=== PATIENT | female | born 1970 | race Two or more races ===

== ENCOUNTER 2017-07-21 11:56 | Emergency (ER) | payer MEDICAID ==
[~2017-07-21] VITALS: Ht 162.6 cm; Wt 77.1 kg
[~2017-07-21 11:56] MED LIST: IBUPROFEN400 MG ORAL
--- NOTE | 2017-07-21 12:12 | Emergency Room Report ---
History of Present Illness General Chief Complaint: Abdominal Pain Source: Patient Present Illness HPI 46 YO Female presents to the ED c/o of Left-sided adnexal pain, 8/10 in severity x 4 days, described as sharp and constant with intermittent exacerbations. pt. just had her period last week. denies vaginal d/c, denies fevers or chills, reports nausea no vomiting, no dysuria, hematuria, frequency, constipation, or diarrhea. Pt. denies radiation of the pain. denies Pmhx. Denies CP, Palpitations, LOC, AMS, dizziness, Changes in Vision, Sensation, paresthesias, or a sudden severe headache. Allergies: Coded Allergies: No Known Allergies (Unverified , 06/12/15) Patient History Past Medical History: see triage record Past Surgical History: none Pertinent Family History: none Last Menstrual Period: 07/17/17 Now: No : 2 Para: 2 Reviewed Nursing Documentation: PMH: Agreed, PSxH: Agreed Nursing Documentation-PMH Past Medical History: No Stated History Review of Systems All Other Systems: negative except mentioned in HPI Physical Exam Vital Signs Date Time Temp Pulse Resp B/P (MAP) Pulse Ox O2 Delivery O2 Flow Rate FiO2 07/21/17 12:04 98.1 62 18 129/85 100 Room Air Sp02 EP Interpretation: reviewed, normal General Appearance: no apparent distress, alert, GCS 15, non-toxic Head: normocephalic, atraumatic Eyes: bilateral eye normal inspection, bilateral eye PERRL ENT: hearing grossly normal, normal voice Neck: full range of motion Respiratory: lungs clear, normal breath sounds, speaking full sentences Cardiovascular #1: regular rate, rhythm Gastrointestinal: normal bowel sounds, non tender, soft, no guarding, no rebound Rectal: deferred Genitourinary: normal inspection, no CVA tenderness, other - Left adnexal TTP, no bulging, no erythema, no palpable LAD, no increased temperature to palpation. Musculoskeletal: back normal, gait/station normal, normal range of motion, non- tender Neurologic: alert, oriented x3, responsive, motor strength/tone normal, sensory intact, normal gait, speech normal Psychiatric: judgement/insight normal, memory normal, mood/affect normal Skin: normal color, no rash, warm/dry, well hydrated Lymphatic: no adenopathy Medical Decision Making PA Attestation Dr. charles is my supervising Physician whom patient management has been discussed with. Diagnostic Impression: Primary Impression: Ovarian cyst Qualified Codes: N83.202 - Unspecified ovarian cyst, left side ER Course Pt. presents to the ED c/o of Left-sided adnexal pain, 8/10 in severity x 4 days , described as sharp and constant with intermittent exacerbations. pt. just had her period last week. denies vaginal d/c, denies fevers or chills, reports nausea no vomiting, no dysuria, hematuria, frequency, constipation, or diarrhea. Pt. denies radiation of the pain. denies Pmhx. Ddx considered but are not limited to Diverticulitis, acute appy, ovarian torsion, ectopic , PID tubo-ovarian abscess, ovarian cyst. Vital signs: are WNL, pt. is afebrile H&PE are most consistent with possible ovarian cyst, however due to presentation will r/o torsion, ectopic, and stone. ORDERS: -CBC, CMP, : unremarkable -UA: WNL/ unremarkable -URINE HCG:Negative -Pelvic US Complete: Left ovarian cyst, normal blood flow to the ovaries. per official radiology report. ED INTERVENTIONS: - 60mg IM Toradol - 5mg [place] -I do not suspect an emergent condition at this time. with current presentation pt. is stable for close outpatient follow up. D/w pt. to return to ED with worsening or new symptoms. DISCHARGE: At this time pt. is stable for d/c to home. Will provide printed patient care instructions, and any necessary prescriptions. Care plan and follow up instructions have been discussed with the patient prior to discharge. Last Vital Signs Date Time Temp Pulse Resp B/P (MAP) Pulse Ox O2 Delivery O2 Flow Rate FiO2 07/21/17 12:04 98.1 62 18 129/85 100 Room Air Disposition: HOME, SELF-CARE Condition: Stable Scripts Hydrocodone Bit/Acetaminophen 5-325* (NORCO 5-325*) 1 Each Tablet 1 TAB ORAL Q6H Y for For Pain, #4 TAB 0 Refills Prov: Yocasta Burch P.A. 07/21/17 Ibuprofen* (MOTRIN*) 600 Mg Tablet 600 MG ORAL THREE TIMES A DAY, #30 TAB 0 Refills Prov: Yocasta Burch P.A. 07/21/17 Patient Instructions: Ovarian Cyst Additional Instructions: Take medications as directed. Follow up with a Primary Care Provider in 3-5 days OBGYN , even if your symptoms have resolved. --Please review list of primary care clinics, if you do not already have a primary care provider Return sooner to ED if new symptoms occur, or current symptoms become worse. - Please note that this Emergency Department Report was dictated using [employer]firmware architect technology software, occasionally this can lead to erroneous entry secondary to interpretation by the dictation equipment. Yocasta Burch Jul 21, 2017 12:12
[2017-07-21 12:14] VITALS: BP 124/67
[2017-07-21 12:35] LABS: APPEARANCE,URINE CLEAR; KETONES,URINE NEGATIVE (NEGATIVE); LEUKOCYTE ESTERASE ,URINE NEGATIVE (NEGATIVE); NITRITE,URINE NEGATIVE (NEGATIVE); PH,URINE 6.5 (4.5-8.0); PROTEIN,URINE NEGATIVE (NEGATIVE); UROBILINOGEN,URINE NORMAL MG/DL (0.0-1.0)
[2017-07-21] MEDS ORDERED: Ketorolac 30mg Inj IV ONE (12:45)
[2017-07-21] MEDS ORDERED: Norco 5mg/325mg tab ORAL ONE (12:45)
[2017-07-21 12:52] LABS: BASOPHILS % (AUTO) 1.3 % (0.0-2.0); EOSINOPHILS % (AUTO) 2.2 % (0.0-3.0); LYMPHOCYTES % (AUTO) 39.5 % (20.0-45.0); MEAN CORPUSCULAR HEMOGLOBIN 30.1 PG (27.0-31.0); MEAN CORPUSCULAR HGB CONC 33.1 G/DL (32.0-36.0); MEAN CORPUSCULAR VOLUME 91 FL (80-99); MEAN PLATELET VOLUME 7.8 FL (6.5-10.1); MONOCYTES % (AUTO) 8.6 % (1.0-10.0); NEUTROPHILS % (AUTO) 48.4 % (45.0-75.0); PLATELET COUNT 215 K/UL (150-450); RED BLOOD COUNT 4.35 M/UL (4.20-5.40); RED CELL DISTRIBUTION WIDTH 12.2 % (11.6-14.8); WHITE BLOOD COUNT 7.8 K/UL (4.8-10.8)
[2017-07-21 13:19] LABS: ALANINE AMINOTRANSFERASE 51 U/L (3-33); ASPARTATE AMINO TRANSFERASE 38 U/L (5-40); CALCIUM 9.3 mg/dL (8.6-10.2); CARBON DIOXIDE 23 mEQ/L (20-30); GLOMERULAR FILTRATION RATE > 60 mL/min (>60); TOTAL PROTEIN 6.9 g/dL (6.6-8.7)
[2017-07-21 13:20] LABS: ALBUMIN/GLOBULIN RATIO 1.3 (1.0-2.7); ANION GAP 14 (5-15); CHLORIDE 103 mEQ/L (98-107); HEMOLYSIS 4; POTASSIUM 4.4 mEQ/L (3.4-4.9); SODIUM 140 mEQ/L (135-145)
[2017-07-21] MEDS ORDERED: IBUPROFEN600 MG ORAL (13:51)
[2017-07-21] MEDS ORDERED: NORCO 5-325 TA1 EACH ORAL (13:51)
[2017-07-21 14:03] VITALS: BP 117/75
--- NOTE | 2017-07-21 15:16 | Diagnostic Imaging Report ---
Indication:Lower abdominal and pelvic pain Technique: Grayscale and duplex Doppler imaging of the pelvis performed utilizing a transabdominal scan and endovaginal scan. Comparison: None Findings: There are bright echoes in the endometrium which appears normal in thickness. These The ovaries are demonstrated and appear normal. There is a simple cyst in the left ovary measuring 2.6 x 1.6 cm. There is Doppler blood flow within both ovaries. No significant free fluid is demonstrated. The endometrial stripe is about 4 mm in thickness. Uterus measures 10 x 5.8 x 63.8 cm. Right ovary 2 point 2 x 2 0.6 x 1.5 CM. Left ovary 3.1 x 2.7 x 3.0 CM. Impression: No acute findings appreciated. Simple left ovarian cyst
== END 2017-07-21 14:13 | disposition home or self-care (01) ==
LOC: EMR 12:21
DX: N83.202 Unspecified ovarian cyst, left side (principal); R10.9 Unspecified abdominal pain
CPT/HCPCS: 36415; 76856; 80053; 81003; 81025; 85025; 96374; 99284; J1885

== ENCOUNTER 2019-05-06 23:21 | Emergency (ER) | payer MEDICAID ==
[~2019-05-06] VITALS: Ht 165.1 cm; Wt 78.5 kg
[~2019-05-06 23:21] MED LIST changes: +IBUPROFEN600 MG ORAL; +NORCO 5-325 TA1 EACH ORAL
[2019-05-06] MEDS ORDERED: NKM (23:29)
[2019-05-06 23:30] VITALS: BP 161/83
--- NOTE | 2019-05-06 23:30 | NUR ---
ED Nurse Note: Patient walked into ED c/o 06/30 lower abdominal pain that radiates to the left side accompanied by painful urination, states that this has been an on going issue for 8 days
--- NOTE | 2019-05-06 23:42 | Emergency Room Report ---
History of Present Illness General Chief Complaint: Female Urogenital Problems Source: Patient Present Illness HPI This is a 48-year-old female with no past medical history. She presents with chief complaint of acute onset of left pelvic left lower quadrant pain. Onset about an hour ago. Pain is sharp. Radiating to the left flank area. [place] nauseous but no vomiting. No diarrhea. No hematuria. Pain is 9 out of 10. Nothing made it better. Nothing made it worse. Allergies: Coded Allergies: No Known Allergies (Unverified , 06/12/15) Patient History Past Medical History: see triage record, old chart reviewed Past Surgical History: other Pertinent Family History: none Social History: Denies: smoking Last Menstrual Period: 03/22/19 Now: No Immunizations: other Reviewed Nursing Documentation: PMH: Agreed; PSxH: Agreed Nursing Documentation-PMH Past Medical History: No Stated History Review of Systems Eye: Denies: eye pain, blurred vision ENT: Denies: ear pain, nose congestion, throat swelling Respiratory: Denies: cough, shortness of breath Cardiovascular: Denies: chest pain, palpitations Gastrointestinal: Reports: abdominal pain; Denies: diarrhea, nausea, vomiting Musculoskeletal: Denies: back pain, joint pain Skin: Denies: rash Neurological: Denies: headache, numbness Endocrine: Denies: increased thirst, increased urine Hematologic/Lymphatic: Denies: easy bruising All Other Systems: negative except mentioned in HPI Physical Exam Vital Signs Date Time Temp Pulse Resp B/P (MAP) Pulse Ox O2 Delivery O2 Flow Rate FiO2 05/06/19 23:25 99.0 72 18 161/83 (109) 100 Room Air Vitals with high blood pressure Sp02 EP Interpretation: reviewed, normal General Appearance: well appearing, no apparent distress, alert Head: normocephalic, atraumatic Eyes: bilateral eye PERRL, bilateral eye EOMI ENT: hearing grossly normal, normal pharynx Neck: full range of motion, supple, no meningismus Respiratory: chest non-tender, lungs clear, normal breath sounds Cardiovascular #1: regular rate, rhythm, no murmur Gastrointestinal: normal bowel sounds, non tender, no mass, no organomegaly, no bruit, non-distended Musculoskeletal: back normal, gait/station normal, normal range of motion Psychiatric: mood/affect normal Skin: warm/dry Medical Decision Making Diagnostic Impression: Primary Impression: Abdominal pain Qualified Codes: R10.32 - Left lower quadrant pain ER Course This patient presents with left lower quadrant abdominal pain. Labs unremarkable. CT unremarkable except for right ovarian cyst. No evidence of obstruction or acute abdomen. Pain resolved now. Will discharge home. CT/MRI/US Diagnostic Results CT/MRI/US Diagnostic Results : Imaging Test Ordered: CT abdomen pelvis Impression Read by radiologist. Right ovarian cyst. Negative otherwise. Last Vital Signs Date Time Temp Pulse Resp B/P (MAP) Pulse Ox O2 Delivery O2 Flow Rate FiO2 05/06/19 23:30 99.0 72 18 161/83 100 Room Air Status: improved Disposition: HOME, SELF-CARE Condition: Stable Scripts Ibuprofen* (MOTRIN*) 600 Mg Tablet 600 MG ORAL THREE TIMES A DAY, #30 TAB 0 Refills Prov: Adelfo Gong MD 05/07/19 Referrals: NOT CHOSEN [facility]/,REFERRING (PCP) Additional Instructions: Follow-up with your doctor in 3 to 5 days. Return if worse. Adelfo Gong MD May 06, 2019 23:42
[2019-05-06] MEDS ORDERED: Ketorolac 30mg Inj IV ONE (23:45)
[2019-05-06 23:56] LABS: APPEARANCE,URINE CLEAR; BILIRUBIN, URINE NEGATIVE (NEGATIVE); COLOR,URINE PALE YELLOW; GLUCOSE, URINE (UA) NEGATIVE (NEGATIVE); KETONES,URINE NEGATIVE (NEGATIVE); LEUKOCYTE ESTERASE ,URINE 1+ (NEGATIVE); NITRITE,URINE NEGATIVE (NEGATIVE); PH,URINE 6 (4.5-8.0); PROTEIN,URINE NEGATIVE (NEGATIVE); UROBILINOGEN,URINE NORMAL MG/DL (0.0-1.0)
--- NOTE | 2019-05-07 00:05 | NUR ---
ED Nurse Note: PT WENT TO CT
[2019-05-07 00:36] LABS: BASOPHILS % (AUTO) 0.8 % (0.0-2.0); EOSINOPHILS % (AUTO) 1.7 % (0.0-3.0); HEMATOCRIT 34.7 % (37.0-47.0); LYMPHOCYTES % (AUTO) 30.1 % (20.0-45.0); MEAN CORPUSCULAR VOLUME 79 FL (80-99); MONOCYTES % (AUTO) 8.2 % (1.0-10.0); NEUTROPHILS % (AUTO) 59.2 % (45.0-75.0); PLATELET COUNT 201 K/UL (150-450); RED BLOOD COUNT 4.39 M/UL (4.20-5.40); RED CELL DISTRIBUTION WIDTH 12.3 % (11.6-14.8)
[2019-05-07 00:41] LABS: ANION GAP 10 mmol/L (5-15); BLOOD UREA NITROGEN 25 mg/dL (7-18); CARBON DIOXIDE 26 MMOL/L (21-32); CHLORIDE 104 MMOL/L (98-107); POTASSIUM 3.9 MMOL/L (3.5-5.1); SODIUM 140 MMOL/L (136-145)
[2019-05-07] MEDS ORDERED: IBUPROFEN600 MG ORAL (01:02)
[2019-05-07 01:08] VITALS: BP 155/79
--- NOTE | 2019-05-07 01:08 | NUR ---
ER DISCHARGE NOTE: Patient is cleared to be discharged per ERMD, pt is aox4, on room air, with stable vital signs. pt was given dc and prescription instructions, pt was able to verbalize understanding, pt id band and iv site removed without complications. pt is able to ambulate with steady gait. pt took all belongings.
--- NOTE | 2019-05-07 10:16 | Diagnostic Imaging Report ---
Indication: Abdominal pain, left-sided abdominal pain Technique: Spiral acquisitions obtained through the abdomen and pelvis. No oral contrast utilized, per emergency room physician request No IV contrast utilized, per referring physician request.. Multiplanar reconstructions were generated. Total dose length product 812.97 mGycm. CTDIvol(s) 16.14 mGy. Dose reduction achieved using automated exposure control Comparison: None Findings: Normal appendix. No evidence of diverticulosis or diverticulitis. No small bowel distention. No free or loculated intraperitoneal gas or fluid is evident. Distal esophagus, stomach, duodenum are unremarkable. Lack of IV contrast limits assessment of solid organs. The liver, gallbladder, bile ducts, pancreas, spleen, adrenals, kidneys are all unremarkable. No retroperitoneal or mesenteric mass or adenopathy. No pelvic mass or adenopathy. The included lung bases demonstrate some groundglass opacity. The bones are unremarkable. Impression: Essentially unremarkable exam Nonspecific basilar pulmonary groundglass opacities This agrees with the preliminary interpretation provided overnight by [facility] teleradiology service, with minor variations. The CT scanner at [facility] is accredited by the [employer] and the scans are performed using protocols designed to limit radiation exposure to as low as reasonably achievable to attain images of sufficient resolution adequate for diagnostic evaluation.
== END 2019-05-07 01:08 | disposition home or self-care (01) ==
LOC: EMR 23:39
DX: R10.32 Left lower quadrant pain (principal); N83.201 Unspecified ovarian cyst, right side
CPT/HCPCS: 36415; 74176; 80048; 81003; 81025; 85025; 96361; 96374; 96375; 99284; J1885; J2405

== ENCOUNTER 2019-09-25 18:16 | Emergency (ER) | payer MEDICAID ==
[~2019-09-25] VITALS: Ht 154.9 cm; Wt 77.1 kg
[~2019-09-25 18:16] MED LIST changes: +NKM
--- NOTE | 2019-09-25 18:36 | NUR ---
ED Nurse Note: pt presents to ED with an allergic reaction x 4 days. per pt's , she developed a rash on her face 4 days ago. The rash is red and itchy, it is on both sides of her face, ears, R forearm and back. pt does not know the trigger. pt denies any swelling of mouth, tongue or difficulty breathing. pt denies taking anything for the allergic reaction [facility]
[2019-09-25 18:38] VITALS: BP 133/77
--- NOTE | 2019-09-25 18:58 | Emergency Room Report ---
History of Present Illness General Chief Complaint: Allergic Reaction Source: Patient Present Illness HPI 48-year-old female presents to the emergency department complaining of progressive rash that started on the bilateral ears and then migrated to the sides of the neck, back of the neck, bilateral AC areas as well as the wrists and bilateral cheeks progressive x3 days. Patient denies pain. Pt. denies fevers, chills or swollen tender lymph nodes. Denies lesions/rashes elsewhere on the body. Denies new medications or body washes or creams. Denies swelling of the lips, tongue , throat or airway. Denies wheezing, or shortness of breath. Denies recent travel, recent illness or ill contacts. denies blisters , oral lesions, or sloughing of the skin Allergies: Coded Allergies: No Known Allergies (Unverified , 06/12/15) Patient History Past Medical History: see triage record Past Surgical History: none Pertinent Family History: none Last Menstrual Period: 09/13/19 Now: No Reviewed Nursing Documentation: PMH: Agreed; PSxH: Agreed Nursing Documentation-PMH Past Medical History: No Stated History Review of Systems All Other Systems: negative except mentioned in HPI Physical Exam Vital Signs Date Time Temp Pulse Resp B/P (MAP) Pulse Ox O2 Delivery O2 Flow Rate FiO2 09/25/19 18:27 98.4 82 18 133/77 (95) 99 Room Air Sp02 EP Interpretation: reviewed, normal General Appearance: no apparent distress, alert, GCS 15, non-toxic Head: normocephalic, atraumatic Eyes: bilateral eye normal inspection, bilateral eye PERRL ENT: hearing grossly normal, normal pharynx, no angioedema, normal voice, uvula midline Neck: full range of motion Respiratory: lungs clear, normal breath sounds, no wheezing, speaking full sentences Cardiovascular #1: regular rate, rhythm Musculoskeletal: gait/station normal, normal range of motion, non-tender Neurologic: alert, oriented x3, responsive, motor strength/tone normal, sensory intact, speech normal, grossly normal Psychiatric: judgement/insight normal Skin: rash - confluent papular rash on the posterior ear, lateral neck and back of the neck, also apparant on the bilateral a/c areas, dorsal wrists and on the bilateral cheeks. no blisters or vessicles. No sloughing of the skin. Lymphatic: no adenopathy Medical Decision Making PA Attestation Dr. Mukherjee is my supervising Physician whom patient management has been discussed with. Diagnostic Impression: Primary Impression: Rash and nonspecific skin eruption Additional Impression: Allergic dermatitis ER Course 48-year-old female presents to the emergency department complaining of progressive rash that started on the bilateral ears and then migrated to the sides of the neck, back of the neck, bilateral AC areas as well as the wrists and bilateral cheeks progressive x3 days. Patient denies pain. Pt. denies fevers, chills or swollen tender lymph nodes. Denies lesions/rashes elsewhere on the body. Denies new medications or body washes or creams. Denies swelling of the lips, tongue , throat or airway. Denies wheezing, or shortness of breath. Denies recent travel, recent illness or ill contacts. denies blisters , oral lesions, or sloughing of the skin Ddx considered but are not limited to allergic reaction, cellulitis, scabies, shingles, varicella, dermatitis, urticaria, eczema, tinea, viral exanthem, SJS Vital signs: are WNL, pt. is afebrile H&PE are most consistent with non-viral exanthem. most likely allergic reaction. --Physical exam does not suggest acute impending airway compromise or anaphylaxis. Patient has a patent airway. ORDERS: none required at this time, the diagnosis is clinical ED INTERVENTIONS: -Benadryl -Prednisone PO -I do not identify an emergent condition at this time. With current presentation , pt. is stable for close outpatient follow up and conservative treatment. D/ w pt. to return promptly to ED with worsening or new symptoms.- Pt. verbalizes' understanding and agreement with proposed treatment plan. DISCHARGE: At this time pt. is stable for d/c to home. Will provide printed patient care instructions, and any necessary prescriptions. Care plan and follow up instructions have been discussed with the patient prior to discharge. Last Vital Signs Date Time Temp Pulse Resp B/P (MAP) Pulse Ox O2 Delivery O2 Flow Rate FiO2 09/25/19 18:38 82 18 Room Air 09/25/19 18:38 98.4 133/77 99 Disposition: HOME, SELF-CARE Condition: Stable Scripts Cetirizine Hcl* (ZYRTEC*) 10 Mg Tablet 10 MG ORAL DAILY, #30 TAB 0 Refills Prov: Yocasta Burch 09/25/19 Hydrocortisone 2% Cream (ANTI-ITCH 2% CREAM) Y Cr 1 APPLIC TP TID, #28 GM Prov: Yocasta Burch 09/25/19 Prednisone* (PREDNISONE*) 20 Mg Tablet 40 MG ORAL DAILY for 3 Days, #6 TAB Prov: Yocasta Burch 09/25/19 Diphenhydramine Hcl (BENADRYL ALLERGY) 25 Mg Tablet 25 MG PO Q6HR, #30 TAB Prov: Yocasta Burch 09/25/19 Referrals: [facility] Patient Instructions: Allergies, Rash, [id number] Additional Instructions: Take medications as directed. Do not drink alcohol, drive, or operate heavy machinery while taking Benadryl as this may cause drowsiness Follow up with a Primary Care Provider in 3-5 days, even if your symptoms have resolved. --Please review list of primary care clinics, if you do not already have a primary care provider Return sooner to ED if new symptoms occur, or current symptoms become worse. . - Please note that this Emergency Department Report was dictated using [employer] gatherer technology software, occasionally this can lead to erroneous entry secondary to interpretation by the dictation equipment. Yocasta Burch Sep 25, 2019 18:58
[2019-09-25] MEDS ORDERED: ZYRTEC10 MG ORAL (19:00)
[2019-09-25] MEDS ORDERED: ANTI-ITCH28 G1 TP (19:00)
[2019-09-25] MEDS ORDERED: PREDNISONE20 MG ORAL (19:00)
[2019-09-25] MEDS ORDERED: BENADRYL ALLERG25 M1 PO (19:00)
--- NOTE | 2019-09-25 19:08 | NUR ---
ED Nurse Note: Received report from Estrella AMEZCUA. No new further orders at this time.
[2019-09-25 19:28] VITALS: BP 133/77
--- NOTE | 2019-09-25 19:28 | NUR ---
ED Nurse Note: Pt cleared by ERMD for discharge. DC instructions/prescription was given and explained to pt and verbalized understanding of teachings. All medical deviecs such as ID band removed. Pt is AAO x4, ambulatory and left with all personal belongings. Accompanied by family member.
== END 2019-09-25 19:28 | disposition home or self-care (01) ==
LOC: EMR 18:50
DX: R21 Rash and other nonspecific skin eruption (principal); L23.9 Allergic contact dermatitis, unspecified cause
CPT/HCPCS: J7512; Z7502; 99282

== ENCOUNTER 2019-10-22 14:45 | Emergency (ER) | payer MEDICAID ==
[~2019-10-22] VITALS: Ht 165.1 cm; Wt 75.7 kg
[~2019-10-22 14:45] MED LIST changes: +ANTI-ITCH28 G1 TP; +BENADRYL ALLERG25 M1 PO; +PREDNISONE20 MG ORAL; +ZYRTEC10 MG ORAL
[2019-10-22 14:54] VITALS: BP 130/77
--- NOTE | 2019-10-22 15:00 | NUR ---
ED Nurse Note: Patient arrived to ED by car from home complaining of lower back pain x 3 days, 06/30. Patient A/O x 4, no complaints of nausea or vomiting.
--- NOTE | 2019-10-22 15:03 | NUR ---
ED Nurse Note: PT FROM HOME AND WALKED IN DUE TO LOWER BACK PAIN THAT RADIATES TO HER LOWER ABD X 3 DAYS. DENIES INJURY OR DYSURIA. AAO X4, AMBULATORY.
[2019-10-22 15:24] LABS: APPEARANCE,URINE CLEAR; BILIRUBIN, URINE NEGATIVE (NEGATIVE); GLUCOSE, URINE (UA) 1+ (NEGATIVE); KETONES,URINE 1+ (NEGATIVE); LEUKOCYTE ESTERASE ,URINE NEGATIVE (NEGATIVE); NITRITE,URINE NEGATIVE (NEGATIVE); PH,URINE 5 (4.5-8.0); PROTEIN,URINE NEGATIVE (NEGATIVE); UROBILINOGEN,URINE NORMAL MG/DL (0.0-1.0)
[2019-10-22 15:29] LABS: COLOR,URINE YELLOW
[2019-10-22] MEDS ORDERED: Ketorolac 30mg Inj IV ONE (15:30)
[2019-10-22] MEDS ORDERED: Omnipaque-300 100ml vial INJ PRN (15:30)
[2019-10-22] MEDS ORDERED: Methocarbamol 750mg tab ORAL ONE (15:30)
[2019-10-22 16:05] LABS: EOSINOPHILS % (AUTO) 1.3 % (0.0-3.0); HEMATOCRIT 40.7 % (37.0-47.0); HEMOGLOBIN 13.5 G/DL (12.0-16.0); MEAN CORPUSCULAR VOLUME 81 FL (80-99); MONOCYTES % (AUTO) 9.3 % (1.0-10.0); NEUTROPHILS % (AUTO) 59.4 % (45.0-75.0); PLATELET COUNT 265 K/UL (150-450); RED BLOOD COUNT 5.01 M/UL (4.20-5.40); RED CELL DISTRIBUTION WIDTH 12.3 % (11.6-14.8)
[2019-10-22 16:10] LABS: ANION GAP 8 mmol/L (5-15); BLOOD UREA NITROGEN 22 mg/dL (7-18); CALCIUM 9.3 MG/DL (8.5-10.1); CARBON DIOXIDE 25 MMOL/L (21-32); CHLORIDE 108 MMOL/L (98-107); CREATININE 0.7 MG/DL (0.55-1.30); POTASSIUM 4.4 MMOL/L (3.5-5.1); SODIUM 141 MMOL/L (136-145)
--- NOTE | 2019-10-22 16:11 | Emergency Room Report ---
History of Present Illness General Chief Complaint: Back Pain-No Injury Source: Patient Present Illness HPI 48-year-old female with no significant past medical history here with her daughter complaining of sudden onset of lower back pain radiating to suprapubic area x2 days. Patient reports that she has history of multiple ovarian cysts and has been seen by a furnace filler however not recently. Patient reports increase vaginal bleeding during her menses. Denies urinary frequency and urgency. Denies nausea and vomiting however complains of fever and chills upon the onset of her symptoms. Denies chest pain, shortness of breath, palpitation , fall or injury. Denies lifting heavy objects. No bony tenderness is noted. Denies diffuse abdominal pain, headache and dizziness. Has not taken medication for symptom relief. Denies history of renal stone, renal infection. Patient explained to daughter that she feels like something is moving in her lower back as she is sitting and standing as if she has dislocated disc. Allergies: Coded Allergies: No Known Allergies (Unverified , 06/12/15) Patient History Past Medical History: see triage record Past Surgical History: unable to obtain Pertinent Family History: none Now: No Immunizations: UTD Reviewed Nursing Documentation: PMH: Agreed; PSxH: Agreed Nursing Documentation-PMH Past Medical History: No Stated History Review of Systems All Other Systems: negative except mentioned in HPI Physical Exam Vital Signs Date Time Temp Pulse Resp B/P (MAP) Pulse Ox O2 Delivery O2 Flow Rate FiO2 10/22/19 14:54 98.4 77 17 130/77 (94) 98 Room Air Sp02 EP Interpretation: reviewed, normal General Appearance: no apparent distress, alert, GCS 15, non-toxic Head: normocephalic, atraumatic Eyes: bilateral eye normal inspection, bilateral eye PERRL ENT: hearing grossly normal, normal pharynx, no angioedema, normal voice Neck: full range of motion, supple/symm/no masses Respiratory: chest non-tender, lungs clear, normal breath sounds, no rhonchi, no wheezing, speaking full sentences Cardiovascular #1: regular rate, rhythm, no edema, no murmur Cardiovascular #2: 2+ carotid (L), 2+ radial (R) Gastrointestinal: normal bowel sounds, non tender, soft, no mass, no organomegaly, no peritonitis, no bruit, non-distended, no guarding, no hernia, no pulsatile mass, no rebound Rectal: deferred Genitourinary: no CVA tenderness Musculoskeletal: back normal, normal range of motion, no calf tenderness, gait/ station normal, non-tender Neurologic: alert, motor strength/tone normal, oriented x3, sensory intact, responsive, speech normal Psychiatric: judgement/insight normal, memory normal, mood/affect normal, no suicidal/homicidal ideation Skin: no rash Lymphatic: no adenopathy Medical Decision Making PA Attestation All my diagnosis and treatment plans were reviewed ad discussed with my supervising physician Dr. Graevs Diagnostic Impression: Primary Impression: Lumbar strain Additional Impressions: Renal lesion Ovarian cyst ER Course 48-year-old female with no significant past medical history here with her daughter complaining of sudden onset of lower back pain radiating to suprapubic area x2 days. Patient reports that she has history of multiple ovarian cysts and has been seen by a furnace filler however not recently. Patient reports increase vaginal bleeding during her menses. Denies urinary frequency and urgency. Denies nausea and vomiting however complains of fever and chills upon the onset of her symptoms. Denies chest pain, shortness of breath, palpitation , fall or injury. Denies lifting heavy objects. No bony tenderness is noted. Denies diffuse abdominal pain, headache and dizziness. Has not taken medication for symptom relief. Denies history of renal stone, renal infection. Patient explained to daughter that she feels like something is moving in her lower back as she is sitting and standing as if she has dislocated disc. Ddx considered but are not limited to: Pyelonephritis, exacerbation of ovarian cyst, UTI, lumbar spine sprain, strain, fracture, contusion, neuropathy Vital signs: are WNL, pt. is afebrile H&PE are most consistent with: lumbar strain, renal cyst, ovarian cyst ORDERS: Lumbar spine x-ray, CT abdomen pelvis with contrast, CBC, CMP, lipase, UA, robaxin, ibuprofen, lidocaine patch ER intervention: NS bolus, Toradol, Robaxin DISCHARGE: At this time pt. is stable for d/c to home. Will provide printed patient care instructions, and any necessary prescriptions. Care plan and follow up instructions have been discussed with the patient prior to discharge. Patient to follow-up with her primary care provider for referral to furnace filler regarding ovarian cyst also have further look into the renal lesion that has been found, avoid strenuous physical activity, physical therapy may help Other X-Ray Diagnostic Results Other X-Ray Diagnostic Results : X-Ray ordered: L spine # of Views/Limited Vs Complete: 3 View Indication: Pain EP Interpretation: Yes PA Xray: Interpretation reviewed, by supervising MD, and agrees with findings. Interpretation: no dislocation, no soft tissue swelling, no fractures Impression: No acute disease Electronically Signed by: Bharathi Pennington PA-C CT/MRI/US Diagnostic Results CT/MRI/US Diagnostic Results : Imaging Test Ordered: CT abd pelvis with contrast Impression wnl, ovarian cyst and small renal lesion noted Last Vital Signs Date Time Temp Pulse Resp B/P (MAP) Pulse Ox O2 Delivery O2 Flow Rate FiO2 10/22/19 14:54 98.4 77 17 130/77 98 Room Air Disposition: HOME, SELF-CARE Condition: Stable Referrals: NOT CHOSEN [facility]/MD,REFERRING (PCP) Patient Instructions: Lumbosacral Strain, Ovarian Cyst, [place] Additional Instructions: Follow-up with primary care provider, physical therapy may benefit you, also you need to be seen by furnace filler regarding the ovarian cyst and also have a further look into the renal lesion possible MRI. Bharathi Smith Oct 22, 2019 16:11
[2019-10-22 16:15] LABS: ALANINE AMINOTRANSFERASE 27 U/L (12-78); ALBUMIN 3.4 G/DL (3.4-5.0); ALBUMIN/GLOBULIN RATIO 0.8 (1.0-2.7); ALKALINE PHOSPHATASE 150 U/L (46-116); ASPARTATE AMINO TRANSFERASE 15 U/L (15-37); BILIRUBIN,TOTAL 0.2 MG/DL (0.2-1.0)
--- NOTE | 2019-10-22 16:17 | Diagnostic Imaging Report ---
Indication: Back pain Comparison: None Findings: 3 views of the lumbar spine were obtained. No acute fracture or malalignment is identified. Vertebral body heights and disk spaces are well maintained. Posterior elements are unremarkable. Impression: No acute findings.
--- NOTE | 2019-10-22 17:06 | Diagnostic Imaging Report ---
Indication: Abdominal pain Technique: Continuous helical transaxial imaging of the abdomen and pelvis was obtained from the lung bases to the pubic symphysis during intravenous contrast administration. Coronal 2-D reformats were also obtained. Study obtained in a Siemens sensation [address] Automatic Exposure Control was utilized. Total Dose length Product (DLP): 992.[address] Dose Index Volume (CTDIvol): 17.7 mGy Comparison: 05/06/2019 Findings: Lung bases are clear. Gallbladder, pancreas, spleen and liver, both adrenal glands appear unremarkable. The appendix is normal. Bowel gas pattern is nonobstructive. There is a tiny low-density lesion in the right kidney too small to characterize. Uterus noted. Small ovarian cysts are noted in the right side. Urinary bladder is unremarkable. There is no free fluid. IMPRESSION: No acute findings The CT scanner at [facility] is accredited by the [employer] and the scans are performed using dose optimization techniques as appropriate to a performed exam including Automatic Exposure control.
[2019-10-22] MEDS ORDERED: LIDODERM700 M1 TOPIC (17:17)
[2019-10-22] MEDS ORDERED: IBU800 MG PO (17:17)
[2019-10-22] MEDS ORDERED: ROBAXIN-500MG ORAL (17:17)
[2019-10-22 17:35] VITALS: BP 134/83
--- NOTE | 2019-10-22 19:39 | NUR ---
ED Nurse Note: Patient cleared to go home by Bharathi PARISI. Patient verbalized understanding of DC instructions along with daughter who is accompanying her.
== END 2019-10-22 17:35 | disposition home or self-care (01) ==
LOC: EMR 14:59
DX: S39.012A Strain of muscle, fascia and tendon of lower back, initial encounter (principal); N28.9 Disorder of kidney and ureter, unspecified; N83.201 Unspecified ovarian cyst, right side; X58.XXXA Exposure to other specified factors, initial encounter; Y92.9 Unspecified place or not applicable
CPT/HCPCS: 36415; 72020; 74177; 80053; 81003; 83690; 85025; 85610; 85730; 96361; 96374; J1885; J7030; Q9967; Z7502; 99284

== ENCOUNTER 2020-12-05 11:07 | Emergency (ER) | payer MEDICAID ==
[~2020-12-05] VITALS: Ht 154.9 cm; Wt 72.6 kg
[~2020-12-05 11:07] MED LIST changes: +IBU800 MG PO; +LIDODERM700 M1 TOPIC; +ROBAXIN-500MG ORAL
--- NOTE | 2020-12-05 11:45 | NUR ---
ED Nurse Note: Pt walked in from home with daughter c/o right shoulder radiating down to right hand x 2 weeks. Pt describes it as "sore" and sometimes "falls asleep." Pt denies injury. Respirations even and unlabored on room air. Vitals stable as documented. A+Ox4, speaking in complete sentences.
[2020-12-05 12:07] VITALS: BP 141/82
--- NOTE | 2020-12-05 13:18 | Emergency Room Report ---
History of Present Illness General Chief Complaint: Upper Extremity Injury Source: Patient Present Illness HPI Right shoulder pain and numbness. 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 As a result she has some right shoulder pain numbness and tingling throughout her hands. It is worse with raising her arm. She denies any trauma. Denies any chest pain or shortness of breath. No other complaints were noted. Symptoms noted to be moderate. No other modifying factors. No other associated signs and symptoms. No other complaints were noted. Allergies: Coded Allergies: No Known Allergies (Unverified , 06/12/15) COVID-19 Screening Contact w/high risk pt: No Recent Travel to affected area: No Experienced COVID-19 symptoms?: No COVID-19 Testing performed [employer]: No COVID-19 Screening: Negative COVID-19 COVID-19 Testing Source: 2 weeks ago Patient History Past Medical History: none Past Surgical History: none Pertinent Family History: none Social History: Denies: smoking, alcohol use, drug use Reviewed Nursing Documentation: PMH: Agreed; PSxH: Agreed Nursing Documentation-PMH Past Medical History: No History, Except For Review of Systems All Other Systems: negative except mentioned in HPI Physical Exam Vital Signs Date Time Temp Pulse Resp B/P (MAP) Pulse Ox O2 Delivery O2 Flow Rate FiO2 12/05/20 11:42 98.1 63 20 146/77 (100) 98 Room Air Sp02 EP Interpretation: reviewed, normal General Appearance: normal inspection, well appearing, no apparent distress, a lert Head: atraumatic Eyes: bilateral eye normal inspection ENT: normal ENT inspection, hearing grossly normal, normal voice Neck: normal inspection, full range of motion, supple, no bony tend Respiratory: normal inspection, lungs clear, normal breath sounds, no respiratory distress, no retraction, no wheezing Cardiovascular #1: regular rate, rhythm, no edema Gastrointestinal: normal inspection, normal bowel sounds, non tender, soft, no guarding, no hernia Genitourinary: no CVA tenderness Musculoskeletal: normal inspection, back normal, normal range of motion, tender - Right shoulder and paraspinal region Neurologic: alert, responsive, speech normal, normal inspection Psychiatric: normal inspection, judgement/insight normal, mood/affect normal Skin: no rash Medical Decision Making Diagnostic Impression: Primary Impression: Radiculopathy ER Course Patient presents emergency department today complaint of right shoulder pain and numbness. Differential considerations include fractures location versus strain. Given patient presentation felt the symptoms most consistent with likely overuse and perhaps radiculopathy giving the numbness. I felt the patient required x-rays of the neck and the shoulder to rule out any fracture or compression fractures. X-rays were noted to be negative. Patient also had EKG was normal. Given the patient negative work-up. Feel patient be discharged home. Recommend rest. Will provide prescription for pain medications and muscle relaxants. Patient is advised to follow up with primary doctor in 2-3 days and return the emergency room for any worsening symptoms and as needed. EKG Diagnostic Results Troponin ordered: No Rate: normal Rhythm: NSR ST Segments: no acute changes Rhythm Strip Diag. Results EP Interpretation: yes Rate: 56 Rhythm: NSR, no PVC's, no ectopy Other X-Ray Diagnostic Results Other X-Ray Diagnostic Results #1: X-Ray ordered: C-spine x-ray # of Views/Limited Vs Complete: 3 View Indication: Pain EP Interpretation: Yes Interpretation: no dislocation, no soft tissue swelling, no fractures Impression: No acute disease Electronically Signed by: Electronically signed by Anjel Patel MD Other X-Ray Diagnostic Results #2: X-Ray ordered: Right shoulder x-ray # of Views/Limited Vs Complete: 3 View Indication: Pain EP Interpretation: Yes Interpretation: no dislocation, no soft tissue swelling, no fractures Impression: No acute disease Electronically Signed by: Electronically signed by Anjel Patel MD Last Vital Signs Date Time Temp Pulse Resp B/P (MAP) Pulse Ox O2 Delivery O2 Flow Rate FiO2 12/05/20 12:07 98.4 68 20 141/82 99 Room Air Status: improved Disposition: HOME, SELF-CARE Condition: Stable Referrals: NOT CHOSEN [facility]/,REFERRING (PCP) Anjel Patel MD Dec 05, 2020 13:18
[2020-12-05] MEDS ORDERED: HYDROCODON-ACE1 EA15 ORAL (13:22)
[2020-12-05] MEDS ORDERED: IBUPROFEN600 M1 ORAL (13:22)
[2020-12-05] MEDS ORDERED: CYCLOBENZAPRINE10 MG ORAL (13:22)
[2020-12-05 13:30] VITALS: BP 148/83
--- NOTE | 2020-12-05 13:30 | NUR ---
ED Nurse Note: Pt cleared by health care Provider for discharge. DC instructions/prescription was given and explained to pt and verbalized understanding of teachings. All medical deviecs such as ID band removed. Pt is AAO x4, ambulatory and left with all personal belongings.
--- NOTE | 2020-12-05 14:12 | Diagnostic Imaging Report ---
Indication: Pain Technique: 3 views of the cervical spine Comparison: none Findings: Mostly liver is normal. No prevertebral soft tissue swelling. Vertebral body heights are preserved. Disc spaces are preserved. No acute fracture. No dislocation. Impression: Negative
--- NOTE | 2020-12-05 14:13 | Diagnostic Imaging Report ---
Indication: Right shoulder pain Technique: 3 views of the right shoulder Comparison: none Findings: No acute fracture. No dislocation. Joint spaces are preserved Impression: Negative
== END 2020-12-05 13:30 | disposition home or self-care (01) ==
LOC: EMR 12:37
DX: M54.10 Radiculopathy, site unspecified (principal)
CPT/HCPCS: 72040; 73030; 93005; Z7502; 99284